=== PATIENT | male | born 1945 | race Caucasian/White ===

== ENCOUNTER 2021-02-01 09:28 | Emergency (ER) | payer MEDICARE, BC ==
[~2021-02-01] VITALS: Ht 180.3 cm; Wt 77.2 kg
[2021-02-01] MEDS ORDERED: LIDOcaine/PRILOcaine 5gm cream TP ONE (11:30)
[2021-02-01 11:53] VITALS: BP 150/75
== END 2021-02-01 12:42 | disposition home or self-care (01) ==
LOC: ER 09:28
DX: S00.03XA Contusion of scalp, initial encounter (principal); S01.01XA Laceration without foreign body of scalp, initial encounter; Z88.8 Allergy status to other drugs, medicaments and biological substances; W01.198A Fall on same level from slipping, tripping and stumbling with subsequent striking against other object, initial encounter; Y93.89 Activity, other specified; Y92.017 Garden or yard in single-family (private) house as the place of occurrence of the external cause
CPT/HCPCS: 12001; 70450; 72125; 99285

== ENCOUNTER 2021-02-22 11:00 | Day surgery (SDC) | payer MEDICARE, BC ==
[~2021-02-22] VITALS: Ht 177.8 cm; Wt 77.3 kg
[2021-02-22 11:25] VITALS: BP 141/73
[2021-02-22] MEDS ORDERED: OMEG-79 PO (11:34)
[2021-02-22] MEDS ORDERED: TIOT4MIS3 INH (11:34)
[2021-02-22] MEDS ORDERED: LEVO25TA2 PO (11:34)
[2021-02-22] MEDS ORDERED: LAMO100T PO (11:34)
[2021-02-22] MEDS ORDERED: CHOL100053 PO (11:34)
[2021-02-22] MEDS ORDERED: MULT-1085 PO (11:34)
[2021-02-22 13:45] VITALS: BP 141/67
[2021-02-22 13:55] VITALS: BP 128/60
[2021-02-22 14:00] VITALS: BP 149/79
== END 2021-02-22 14:20 | disposition home or self-care (01) ==
LOC: SSTAY O 11:00
PROVIDERS: ATTEND Radiology Diagnostic Radiology
DX: M71.21 Synovial cyst of popliteal space [Baker], right knee (principal); M25.561 Pain in right knee
CPT/HCPCS: 10160; 76942

== ENCOUNTER 2021-12-10 07:42 | Inpatient (IN) | payer MEDICARE, BC ==
[2021-12-03 12:20] LABS: BASOPHILS # (AUTO) 0.1 X10'3 (0-0.2); BASOPHILS % (AUTO) 1.2 % (0-1); EOSINOPHILS # (AUTO) 0.3 X10'3 (0-0.9); EOSINOPHILS % (AUTO) 4.1 % (0-6); LYMPHOCYTES # (AUTO) 2.1 X10'3 (1.1-4.8); LYMPHOCYTES % (AUTO) 29.7 % (21-51); MEAN CORPUSCULAR HEMOGLOBIN 30.9 PG (27.0-31.0); MEAN CORPUSCULAR HGB CONC 33.4 g/dL (33.0-36.5); MEAN CORPUSCULAR VOLUME 92.4 FL (78-98); MEAN PLATELET VOLUME 6.9 FL (7.4-10.4); MONOCYTES # (AUTO) 0.8 X10'3 (0-0.9); MONOCYTES % (AUTO) 10.7 % (2-12); NEUTROPHILS # (AUTO) 3.8 X10'3 (1.8-7.7); NEUTROPHILS % (AUTO) 54.3 % (42-75); PRE OP HEMATOCRIT 44.7 % (42.0-52.0); PRE OP PLATELET COUNT 245 X10'3 (140-440); RED BLOOD COUNT 4.84 X10'6 (4.70-6.10); RED CELL DISTRIBUTION WIDTH 12.9 % (11.5-14.5)
[2021-12-03 12:34] LABS: ALBUMIN 3.7 G/DL (3.4-5.0); ALKALINE PHOSPHATASE 113 IU/L (46-116); BLOOD UREA NITROGEN 13 MG/DL (7-18); BUN/CREATININE RATIO 16.7 (5.4-32.0); CALCIUM 8.5 MG/DL (8.5-10.1); CHLORIDE 100 MMOL/L (99-107); CREATININE 0.78 MG/DL (0.60-1.10); PRE OP ALT 24 U/L (30-65); PRE OP ANION GAP 7 (8-16); PRE OP AST 26 U/L (10-37); PRE OP BILIRUB, TOTAL 0.4 MG/DL (0.0-1.0); PRE OP GLUCOSE 91 MG/DL (70-104); PRE OP SODIUM 136 MMOL/L (135-145); TOTAL CARBON DIOXIDE 29.4 MMOL/L (24-32); TOTAL PROTEIN 7.3 G/DL (6.4-8.2); eGFR > 90 ML/MIN
[2021-12-10] VITALS (28 sets, daily range): BP systolic 121–180; BP diastolic 59–92
[~2021-12-10] VITALS: Ht 177.8 cm; Wt 82.4 kg
[~2021-12-10 07:42] MED LIST: LAMO100T PO; LEVO25TA2 PO; cefazolin/dext.iso 2gm/50ml IV ONE; famotidine 20mg tablet PO ONE; ringers solution, lacted 1,000 ML IV SCH; tranexamic acid 650mg tablet PO ONE; vancomycin 1,500 MG in NS 300ml IV soln IV ONE
--- NOTE | 2021-12-10 08:00 | NUR ---
PATIENT STATED HE DID NOT USE THE MUPIROCIN THE DOCTOR ORDERED PRIOR TO HIS SURGERY. HE WAS NOT ABLE TO PICK IT UP BEFORE THE PHARMACY CLOSED. THE PATIENT ALSO PUT CLOTHES IN THE CLOSET IN [facility] AND DID NOT PUT THEM IN THE CLOTHES BAG GIVEN TO HIM. THE [facility] NURSE BAGGED HIS CLOTHES X 3 BAGS AND GATHERED HIS BOX WITH THE SLING IN IT,AND HIS CPAP (IN A BLUE CASE). SHE THEN TOOK THEM TO RECOVERY WITH LABELS ON EACH ITEM AND SIGNED TO DROP OFF FORM Addendum: 12/10/21 at 1202 by Sveta Cooley RN Amended: Links added.
[2021-12-10] MEDS ORDERED: ibuprofen PO (08:47)
[2021-12-10] MEDS ORDERED: ketorolac trometh. 30mg/ml inj. ONE (11:23)
[2021-12-10] MEDS ORDERED: ROPIVAcaine 0.5% (5mg/ml) 30ml vial ONE ×2 (11:23→13:30)
[2021-12-10] MEDS ORDERED: MIDAZolam 1 MG/ML 5ML VIAL ONE (12:03)
[2021-12-10] MEDS ORDERED: FENTANYL CITRATE/PF 50 MCG/1 ML VIAL ONE ×2 (12:03→13:31)
[2021-12-10] MEDS ORDERED: ROPIVAcaine 0.2% (10 MG/5 ML) BOLUS INJECTION INTERSCALE PRN (13:30)
[2021-12-10] MEDS ORDERED: ondansetron/PF 4mg/2ml inj IV PRN (13:30)
[2021-12-10] MEDS ORDERED: morphine 4 MG/ML inj SYRINge IV PRN (13:30)
[2021-12-10] MEDS ORDERED: ringers solution, lacted 1,000 ML IV SCH (13:30)
[2021-12-10] MEDS ORDERED: proCHLORperazine 10 MG/2 ml inj IV PRN (13:30)
[2021-12-10] MEDS ORDERED: propofol inj 20 ML IV ONE (13:30)
[2021-12-10] MEDS ORDERED: morphine 2 MG/ML inj. syringe IV PRN (13:30)
[2021-12-10] MEDS ORDERED: meperidine/PF 25mg/ml syringe IV PRN ×3 (13:30)
[2021-12-10] MEDS ORDERED: ePHEDrine 50MG/ML INJ. ONE (13:31)
--- NOTE | 2021-12-10 14:25 | NUR ---
Received from OR via HOSPITAL BED, accompanied by Anesthesiologist DR STANFORD and report given by Anesthesiolgist. PT PRESENTS WITH PIV 20G RIGHT AC, DRESSING ON RIGHT SHOULDER WITH POWDER PACK, READY FOR ON-Q. VSS. Addendum: 12/10/21 at 1444 by Bev Momin RN, RN Amended: Links added.
[2021-12-10] MEDS ORDERED: acetaminophen 325mg tablet PO PRN (15:10)
[2021-12-10] MEDS ORDERED: oxyCODONE IR 5mg (immed. release) tablet PO PRN (15:10)
[2021-12-10] MEDS ORDERED: HYDROmorphone 1 mg/ml syringe IV PRN (15:10)
[2021-12-10] MEDS ORDERED: HYDROmorphone inj. 0.5 MG/0.5 ML DISP.SYRIN IV PRN (15:10)
[2021-12-10] MEDS ORDERED: magnesium hydroxide 30ml (MOM) UD suspension PO PRN (15:10)
[2021-12-10] MEDS ORDERED: IBUPROFEN 800 MG PO PRN (15:10)
[2021-12-10] MEDS ORDERED: diphenhydrAMINE 25mg capsule PO PRN ×2 (15:10)
[2021-12-10] MEDS ORDERED: bisacodyl 10mg suppository rectal RC PRN (15:10)
[2021-12-10] MEDS: ROPIVAcaine 0.2%/PF PUMP/bolus 545 ML INTERSCALE SCH (15:19)
--- NOTE | 2021-12-10 16:45 | NUR ---
Report called to receiving nurse TOMASZ MADDOX. Transferred via HOSPITAL BED WITH 2 PT Belonging BAGS, CPAP, HEARING AIDS, GLASSES. BED IN LOW LOCKED POSITION WITH CALL LIGHT IN REACH, PT MIKE RESENDEZ TO VITALS MACHINE. TOMASZ MADDOX IN ROOM 357B TO RECEIVE PT. Special Issues communicated to receiving nurse. Addendum: 12/10/21 at 1716 by Bev Momin RN RN Amended: Links added.
--- NOTE | 2021-12-10 17:12 | NUR ---
Received from recovery room via HOSPITAL BED, accompanied by Bev MADDOX, and report given by Bev. PT PRESENTS WITH PIV 20G RIGHT AC, DRESSING ON RIGHT SHOULDER WITH POWDER PACK, READY FOR ON-Q. v/s is normal.No distress noted at this time, denied pain.
[2021-12-10] MEDS: potassium cl 20mEq in 1/2 NS 1,000 ML IV SCH ×2 (17:44→23:10)
--- NOTE | 2021-12-10 18:04 | NUR ---
Patient in room [facility]. I have received report from Julia MADDOX and had the opportunity to ask questions and assume patient care.
--- NOTE | 2021-12-10 18:47 | NUR ---
Problems reprioritized. Patient report given, questions answered & plan of care reviewed with KAE MADDOX.
[2021-12-10] MEDS: ceFAZolin/D5W- 1GM premix 50 ML IV SCH (18:51)
--- NOTE | 2021-12-10 19:13 | NUR ---
Telephoned Dr. Johnson regarding patient wanting his inhaler that is in pharmacy. Telephone order given and faxed to pharmacy. Pt VSS, will continue to monitor.
[2021-12-10] MEDS ORDERED: Tiotropium Br/Olodaterol HCl (Stiolto Respimat Inhal Spray) IH PRN (19:15)
[2021-12-10] MEDS ORDERED: TIOT4MIS3 INH (19:16)
[2021-12-10] MEDS: lamoTRIgine 100mg tablet PO SCH (19:30)
[2021-12-10] MEDS: acetaminophen 325mg tablet PO SCH (19:31)
[2021-12-10] MEDS ORDERED: VANCOMYCIN 1GM/200ML IVPB 200 ML IV SCH (20:00)
[2021-12-10] MEDS: sennosides 8.6mg tablet PO SCH (21:00)
[2021-12-11] MEDS: ceFAZolin/D5W- 1GM premix 50 ML IV SCH (00:02)
--- NOTE | 2021-12-11 00:52 | NUR ---
Pt got hot and diaphoretic and thought he possibly had a seizure however Pt was alert, easily oriented, blood sugar of 90, VSS, with no actual signs of distress. Suction placed at bedside. Will continue to monitor. registered nurse cardiac aware.
[2021-12-11] MEDS: ondansetron/PF 4mg/2ml inj IV PRN ×2 (01:15→18:30)
[2021-12-11 01:30] VITALS: BP 129/68
--- NOTE | 2021-12-11 01:30 | NUR ---
Pt still diaphoretic and uncomfortable. Bladder scanned pt, greater than 430 in the bladder after urinating. Called Dr Johnson for order for Solomon due to retention issues. Unable to get 16Fr catheter placed, used coude without issues. Pt resting comfortably. Will continue to monitor.
[2021-12-11] MEDS: acetaminophen 325mg tablet PO SCH ×4 (02:00→20:00)
[2021-12-11] MEDS: oxyCODONE IR 5mg (immed. release) tablet PO PRN ×3 (02:01→11:09)
[2021-12-11] MEDS: potassium cl 20mEq in 1/2 NS 1,000 ML IV SCH (03:28)
[2021-12-11 05:55] LABS: BASOPHILS % (AUTO) 0.4 % (0-1); EOSINOPHILS % (AUTO) 0.3 % (0-6); HEMATOCRIT 41.4 % (42.0-52.0); HEMOGLOBIN 13.8 g/dl (14.0-17.9); LYMPHOCYTES # (AUTO) 0.9 X10'3 (1.1-4.8); LYMPHOCYTES % (AUTO) 9.8 % (21-51); MEAN CORPUSCULAR HEMOGLOBIN 31.1 PG (27.0-31.0); MEAN CORPUSCULAR HGB CONC 33.4 g/dL (33.0-36.5); MEAN PLATELET VOLUME 6.7 FL (7.4-10.4); NEUTROPHILS # (AUTO) 7.4 X10'3 (1.8-7.7); NEUTROPHILS % (AUTO) 78.5 % (42-75); PLATELET COUNT 208 X10'3 (140-440); RED BLOOD COUNT 4.45 X10'6 (4.70-6.10); RED CELL DISTRIBUTION WIDTH 13.4 % (11.5-14.5); WHITE BLOOD COUNT 9.4 X10'3 (4.5-11.0)
[2021-12-11 06:15] LABS: ANION GAP 5 (8-16); CHLORIDE 102 MMOL/L (99-107); POTASSIUM 4.6 MMOL/L (3.5-5.1); SODIUM 134 MMOL/L (135-145); TOTAL CARBON DIOXIDE 27.3 MMOL/L (24-32)
--- NOTE | 2021-12-11 06:30 | NUR ---
Problems reprioritized. Patient report given, questions answered & plan of care reviewed with Yarely MADDOX.
--- NOTE | 2021-12-11 06:42 | NUR ---
Patient in room [facility]. I have received report from TAN Garner and had the opportunity to ask questions and assume patient care.
--- NOTE | 2021-12-11 06:56 | NUR ---
ONQ ball titrated to 12.
[2021-12-11 07:37] VITALS: BP 156/82
[2021-12-11] MEDS: lamoTRIgine 100mg tablet PO SCH ×2 (07:56→19:51)
[2021-12-11] MEDS: levoTHYROXINE 25mcg tablet PO SCH (07:57)
[2021-12-11] MEDS: aspirin 325mg tablet PO SCH (08:01)
[2021-12-11 11:21] VITALS: BP 126/74
[2021-12-11 11:25] VITALS: BP 119/64
--- NOTE | 2021-12-11 12:08 | NUR ---
Student Medication Administration: For this medication-pass time frame [id number], all medications were reviewed, administered and documented per hospital policy by Navid Antoine. Student documentation:I have reviewed and agree with all interventions, assessments performed and documented by Navid Antoine.
--- NOTE | 2021-12-11 12:19 | NUR ---
Per PT patient up to ambulate but became dizzy, light headed and diaphoretic. Patient BP was 83/53. Patient was assisted back to bed and BP was 126/70. Madeline Quintana notified. Received new orders.
[2021-12-11] MEDS ORDERED: normal saline 1000ml 1,000 ML IV ONE (12:20)
[2021-12-11] MEDS ORDERED: ketorolac tromethamine 15mg/ml inj. IV ONE (12:20)
[2021-12-11] MEDS: normal saline 1000ml 1,000 ML IV SCH ×2 (13:42→16:13)
--- NOTE | 2021-12-11 18:28 | NUR ---
Problems reprioritized. Patient report given, questions answered & plan of care reviewed with TAN Garner.
--- NOTE | 2021-12-11 18:45 | NUR ---
Patient in room [facility]. I have received report from Yarely MADDOX and had the opportunity to ask questions and assume patient care.
[2021-12-11] MEDS: sennosides 8.6mg tablet PO SCH (19:52)
[2021-12-11] MEDS: acetaminophen w/codeine (30MG) #3 tablet PO PRN (19:54)
[2021-12-11 20:19] VITALS: BP 146/72
[2021-12-12] VITALS: BP 138/70
[2021-12-12] MEDS: acetaminophen 325mg tablet PO SCH ×3 (02:00→13:10)
[2021-12-12] MEDS: acetaminophen w/codeine (30MG) #3 tablet PO PRN (03:49)
[2021-12-12] MEDS: normal saline 1000ml 1,000 ML IV SCH (04:54)
[2021-12-12] MEDS: ROPIVAcaine 0.2%/PF PUMP/bolus 545 ML INTERSCALE SCH (04:54)
[2021-12-12 06:37] LABS: BASOPHILS # (AUTO) 0.1 X10'3 (0-0.2); BASOPHILS % (AUTO) 0.7 % (0-1); EOSINOPHILS # (AUTO) 0.3 X10'3 (0-0.9); EOSINOPHILS % (AUTO) 2.9 % (0-6); HEMATOCRIT 36.5 % (42.0-52.0); HEMOGLOBIN 12.4 g/dl (14.0-17.9); LYMPHOCYTES # (AUTO) 1.6 X10'3 (1.1-4.8); LYMPHOCYTES % (AUTO) 15.6 % (21-51); MEAN CORPUSCULAR HEMOGLOBIN 31.3 PG (27.0-31.0); MEAN CORPUSCULAR HGB CONC 33.8 g/dL (33.0-36.5); MEAN CORPUSCULAR VOLUME 92.7 FL (78-98); MEAN PLATELET VOLUME 7.1 FL (7.4-10.4); MONOCYTES # (AUTO) 1.4 X10'3 (0-0.9); MONOCYTES % (AUTO) 14.2 % (2-12); NEUTROPHILS # (AUTO) 6.6 X10'3 (1.8-7.7); NEUTROPHILS % (AUTO) 66.6 % (42-75); PLATELET COUNT 211 X10'3 (140-440); RED BLOOD COUNT 3.94 X10'6 (4.70-6.10); RED CELL DISTRIBUTION WIDTH 13.5 % (11.5-14.5)
--- NOTE | 2021-12-12 06:40 | NUR ---
Problems reprioritized. Patient report given, questions answered & plan of care reviewed with Brittany MADDOX.
[2021-12-12 07:00] VITALS: BP 153/95
[2021-12-12 07:19] VITALS: BP 153/95
[2021-12-12 07:45] VITALS: BP_SYST 130; BP_SYST 159; BP_SYST 167; BP_DIAS 71; BP_DIAS 72; BP_DIAS 89
[2021-12-12] MEDS: ondansetron/PF 4mg/2ml inj IV PRN ×2 (07:50→22:11)
[2021-12-12] MEDS: levoTHYROXINE 25mcg tablet PO SCH (07:53)
[2021-12-12] MEDS: lamoTRIgine 100mg tablet PO SCH ×2 (07:53→19:56)
[2021-12-12] MEDS: aspirin 325mg tablet PO SCH (07:53)
[2021-12-12 12:47] VITALS: BP 144/72
[2021-12-12] MEDS: ibuprofen tablet 400 MG TABLET PO SCH ×2 (13:11→19:02)
[2021-12-12 13:32] LABS: ALANINE AMINOTRANSFERASE 20 U/L (12-78); ALBUMIN 2.7 G/DL (3.4-5.0); ALBUMIN/GLOBULIN RATIO 0.8 (1.1-1.5); ALKALINE PHOSPHATASE 85 IU/L (46-116); ANION GAP 7 (8-16); ASPARTATE AMINO TRANSFERASE 21 U/L (10-37); BILIRUBIN,TOTAL 0.4 MG/DL (0.1-1.0); BLOOD UREA NITROGEN 6 MG/DL (7-18); BUN/CREATININE RATIO 8.6 (5.4-32.0); CALCIUM 7.9 MG/DL (8.5-10.1); CHLORIDE 105 MMOL/L (99-107); GLUCOSE 83 MG/DL (70-104); POTASSIUM 4.3 MMOL/L (3.5-5.1); SODIUM 139 MMOL/L (135-145); TOTAL CARBON DIOXIDE 27.4 MMOL/L (24-32); TOTAL PROTEIN 6.1 G/DL (6.4-8.2); eGFR > 90 ML/MIN
[2021-12-12] MEDS ORDERED: furosemide 40mg/4ml inj IV ONE (13:35)
[2021-12-12 13:36] LABS: OSMOLALITY 285 MOSM/K (280-300)
[2021-12-12 14:56] LABS: CLARITY,URINE CLEAR (Clear); COLOR,URINE YELLOW (Yellow); GLUCOSE, URINE NEGATIVE (Neg); KETONES,URINE NEGATIVE (Neg); LEUKOCYTE ESTERASE ,URINE TRACE (Neg); NITRITES, URINE NEGATIVE (Neg); OCCULT BLOOD,URINE SMALL (Neg); PH,URINE 6.5 (4.8-8.0); PROTEIN,URINE NEGATIVE (Neg); UROBILINOGEN,URINE 0.2 E.U/dL (0.2-1.0)
[2021-12-12 14:58] LABS: UA COLLECTION TYPE NON-SPECIFIED
[2021-12-12 15:02] LABS: BACTERIA,URINE NONE SEEN /HPF (Neg); RBC,URINE 0-2 /HPF (0-2); WBC,URINE 0-4 /HPF (0-4)
[2021-12-12 15:03] LABS: SQUAMOUS EPITHELIAL CELL,UR FEW /LPF (FEW)
[2021-12-12] MEDS ORDERED: acetaminophen 325mg tablet PO PRN (15:10)
--- NOTE | 2021-12-12 18:00 | NUR ---
Report given to Elsy MADDOX, all questions answered. Patient breathing well at this time but will be monitored for sob.
[2021-12-12 20:00] VITALS: BP_SYST 151; BP_SYST 156; BP_SYST 160; BP_SYST 162; BP_DIAS 77; BP_DIAS 82; BP_DIAS 83; BP_DIAS 91
[2021-12-12] MEDS: sennosides 8.6mg tablet PO SCH (20:03)
[2021-12-13] VITALS (8 sets, daily range): BP systolic 140–165; BP diastolic 69–93
[2021-12-13] MEDS: ondansetron/PF 4mg/2ml inj IV PRN ×2 (05:27→21:25)
--- NOTE | 2021-12-13 06:30 | NUR ---
Patient in room [facility]. I have received report from TAN Chin and had the opportunity to ask questions and assume patient care.
[2021-12-13 06:40] LABS: BASOPHILS # (AUTO) 0.1 X10'3 (0-0.2); BASOPHILS % (AUTO) 0.8 % (0-1); EOSINOPHILS # (AUTO) 0.4 X10'3 (0-0.9); EOSINOPHILS % (AUTO) 4.5 % (0-6); HEMATOCRIT 36.7 % (42.0-52.0); HEMOGLOBIN 12.3 g/dl (14.0-17.9); LYMPHOCYTES # (AUTO) 1.6 X10'3 (1.1-4.8); LYMPHOCYTES % (AUTO) 17.9 % (21-51); MEAN CORPUSCULAR HEMOGLOBIN 30.9 PG (27.0-31.0); MEAN CORPUSCULAR HGB CONC 33.5 g/dL (33.0-36.5); MEAN CORPUSCULAR VOLUME 92.1 FL (78-98); MEAN PLATELET VOLUME 7.3 FL (7.4-10.4); MONOCYTES # (AUTO) 1.1 X10'3 (0-0.9); MONOCYTES % (AUTO) 11.9 % (2-12); NEUTROPHILS # (AUTO) 5.8 X10'3 (1.8-7.7); NEUTROPHILS % (AUTO) 64.9 % (42-75); PLATELET COUNT 225 X10'3 (140-440); RED BLOOD COUNT 3.98 X10'6 (4.70-6.10); RED CELL DISTRIBUTION WIDTH 13.3 % (11.5-14.5)
[2021-12-13] MEDS: levoTHYROXINE 25mcg tablet PO SCH (08:13)
[2021-12-13] MEDS: aspirin 325mg tablet PO SCH (08:13)
[2021-12-13] MEDS: ibuprofen tablet 400 MG TABLET PO SCH ×3 (08:13→16:52)
[2021-12-13] MEDS: lamoTRIgine 100mg tablet PO SCH ×2 (08:13→21:29)
[2021-12-13] MEDS ORDERED: magnesium citrate 296ml oral solution PO ONE (12:35)
[2021-12-13] MEDS: JUVEN Shake w/Arg/Glut/Ca2+Bmb (Juven 19.3gm) pkt 240ml PO SCH ×2 (13:27→18:22)
[2021-12-13] MEDS ORDERED: clotrimazole/betamethasone diproprion. cream 15gm TP ONE (14:28)
--- NOTE | 2021-12-13 16:42 | NUR ---
Charting by Nikia HILL reviewed by Chantelle Ferreira RN
--- NOTE | 2021-12-13 16:48 | NUR ---
Patient stated last BM was 12/10/21. no Addendum: 12/13/21 at 1650 by Nikia CHINO Patient stated last BM was 12/10/21. Patient refused interventions at this time. Patient stated "I don't feel like I need it."
[2021-12-13] MEDS: metoclopramide 5 mg/ml inj IV PRN (16:54)
[2021-12-13] MEDS: sennosides 8.6mg tablet PO SCH (21:29)
[2021-12-13] MEDS: clotrimazole/betamethasone diproprion. cream 15gm TP SCH (21:32)
[2021-12-14] VITALS: BP 172/86
[2021-12-14 01:00] VITALS: BP 155/72
--- NOTE | 2021-12-14 05:23 | NUR ---
late entry 12/13/21 unable to obtain ortho static vs due to pt not feeling well
--- NOTE | 2021-12-14 06:47 | NUR ---
Patient in room [facility]. I have received report from TAN Chin and had the opportunity to ask questions and assume patient care.
--- NOTE | 2021-12-14 07:05 | NUR ---
late entry 12/13/212018 spoke to dr avendano to inform him pt sat on side of bed preparing for discharge and stated he felt light headed and weak. bp taken bp 155/84 p 84 o2 sat 93% on r/a r [address] avendano notified of vs. pt stated he did not walk during the day and is concerned that he might fall. dr avendano notified of all of the above . hold discharge order obtained as well as order discharge planning to place in conval[facility]ent home. change nurse loraine notified
[2021-12-14] MEDS: levoTHYROXINE 25mcg tablet PO SCH (07:27)
[2021-12-14] MEDS: lamoTRIgine 100mg tablet PO SCH (07:27)
[2021-12-14] MEDS: clotrimazole/betamethasone diproprion. cream 15gm TP SCH (07:28)
[2021-12-14] MEDS: metoclopramide 5 mg/ml inj IV PRN ×2 (07:32→13:38)
[2021-12-14] MEDS: aspirin 325mg tablet PO SCH (07:32)
[2021-12-14] MEDS: JUVEN Shake w/Arg/Glut/Ca2+Bmb (Juven 19.3gm) pkt 240ml PO SCH ×2 (07:36→13:14)
[2021-12-14] MEDS: ibuprofen tablet 400 MG TABLET PO SCH ×2 (07:37→12:21)
[2021-12-14 08:00] VITALS: BP_SYST 148; BP_SYST 149; BP_SYST 156; BP_DIAS 64; BP_DIAS 69; BP_DIAS 83
[2021-12-14 08:24] VITALS: BP 155/69
[2021-12-14] MEDS ORDERED: METO5TAB98 PO (11:28)
[2021-12-14 12:00] VITALS: BP 165/76
[2021-12-14] MEDS: ROPIVAcaine 0.2%/PF PUMP/bolus 545 ML INTERSCALE SCH (13:20)
--- NOTE | 2021-12-14 14:19 | NUR ---
VS stable, no c/o of SOB and able to tolerate ambulation. Pt discharged with instructions and care given to pt and Tess via phone. Both verbalized understanding and asked appropriate questions. Physical therapy, IRINA Devries, THOM Campbell, Primary Care Nurse, and HCPs involved in care. IV discontinued, no s/sx of complications and dressing applied. Belongings such as clothes, cpap, hearing aids, medications from pharm (tramadol, etc) and omnicell (inhaler or cream) returned to pt. Pt escorted via [employer] personnel and wheel chair.
== END 2021-12-14 14:21 | disposition home or self-care (01) | DRG 483 ==
LOC: PAS IN 07:42 → SUR 3N 16:54
PROVIDERS: ADMIT Orthopaedic Surgery; ATTEND Orthopaedic Surgery
PROC: 0LS40ZZ Reposition Left Upper Arm Tendon, Open Approach (ICD-10-PCS; 2021-12-10)
PROC: 3E0T3BZ Introduction of Anesthetic Agent into Peripheral Nerves and Plexi, Percutaneous Approach (ICD-10-PCS; 2021-12-10)
PROC: 0RRK0JZ Replacement of Left Shoulder Joint with Synthetic Substitute, Open Approach (ICD-10-PCS; principal; 2021-12-10 12:02)
DX: M19.012 Primary osteoarthritis, left shoulder (principal); D62 Acute posthemorrhagic anemia; G89.29 Other chronic pain; M65.812 Other synovitis and tenosynovitis, left shoulder; I95.1 Orthostatic hypotension; T40.2X5A Adverse effect of other opioids, initial encounter; Y92.230 Patient room in hospital as the place of occurrence of the external cause; R21 Rash and other nonspecific skin eruption; Z79.899 Other long term (current) drug therapy; J44.9 Chronic obstructive pulmonary disease, unspecified; G47.30 Sleep apnea, unspecified
CPT/HCPCS: 36415; 71045; 71046; 80051; 80053; 81001; 82948; 83930; 84300; 84443; 85025; 87081; 93005; 97110; 97116; 97161; 97530; 97535; A4215; A4565; A4618; A7000; C1713; C1776; G0378; J0690; J1885; J1940; J2250; J2405; J2704; J2765; J2795; J3010; J3370; J3480; J3490; J7030; J7040; J7120; Q0163; U0003; U0005

== ENCOUNTER 2023-01-02 10:13 | Emergency (ER) | payer MEDICARE, BC ==
[~2023-01-02] VITALS: Ht 177.8 cm; Wt 81.0 kg
[~2023-01-02 10:13] MED LIST changes: +TIOT4MIS3 INH; -cefazolin/dext.iso 2gm/50ml IV ONE; -famotidine 20mg tablet PO ONE; +ibuprofen PO; -ringers solution, lacted 1,000 ML IV SCH; -tranexamic acid 650mg tablet PO ONE; -vancomycin 1,500 MG in NS 300ml IV soln IV ONE
[2023-01-02 10:18] VITALS: BP 167/75
== END 2023-01-02 11:15 | disposition home or self-care (01) ==
LOC: ER 10:13
DX: M25.521 Pain in right elbow (principal); Z88.5 Allergy status to narcotic agent; Z79.899 Other long term (current) drug therapy; Z79.1 Long term (current) use of non-steroidal anti-inflammatories (NSAID); Z79.2 Long term (current) use of antibiotics
CPT/HCPCS: 73080; 99283